=== PATIENT | female | born 1960 | race Caucasian/White ===

== ENCOUNTER 2019-06-28 10:27 | Outpatient (CLI) | payer OTHER, SELFPAY ==
--- NOTE | ~2019-06-28 | XR_ITS ---
XR ankle LT min 3V DATE: 06/28/2019 10:55 INDICATION: Ankle and foot pain TECHNIQUE: 4 views COMPARISON: None FINDINGS: There is prominent generalized soft tissue swelling of the left ankle. No fracture or dislocation of the ankle or disruption of the ankle mortise. No periosteal reaction or bone destruction. Mild plantar calcaneal enthesopathy. IMPRESSION: Generalized soft tissue swelling Reviewed, dictated and finalized at location B. 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
[2019-06-28 10:45] LABS: Basophils Absolute Auto 0.04 K/mm3 (0.00-0.10); Basophils Percent Auto 0.7 % (0.0-1.0); Eosinophils Absolute Auto 0.05 K/mm3 (0.02-0.50); Eosinophils Percent Auto 0.9 % (1.0-6.0); Hematocrit 40.6 % (35.0-49.0); Hemoglobin 13.6 g/dL (12.0-15.0); Immature Granulocyte Absolute 0.01 K/mm3 (0.00-0.00); Immature Granulocyte Percent A 0.2 % (0.0-0.0); Lymphocytes Absolute Auto 1.73 K/mm3 (1.10-4.50); Lymphocytes Percent Auto 30.7 % (18.0-42.0); Mean Corpuscular HGB Conc 33.5 g/dL (32.0-36.0); Mean Corpuscular Hemoglobin 30.7 pg (27.0-31.0); Mean Corpuscular Volume 91.6 fL (78.0-102.0); Mean Platelet Volume 9.9 fl (9.2-11.8); Monocytes Absolute Auto 0.49 K/mm3 (0.10-0.90); Monocytes Percent Auto 8.7 % (2.0-11.0); Neutrophils Absolute Auto 3.3 K/mm3 (1.7-7.2); Neutrophils Percent Auto 58.8 % (50.0-70.0); Platelet Count Result 290 K/mm3 (150-420); Red Blood Count 4.43 M/mm3 (4.20-5.40); Red Cell Distribution Width 13.1 % (11.6-14.4); White Blood Count 5.6 K/mm3 (4.8-10.8)
[2019-06-28 11:18] LABS: Anion Gap 13.4 mmol/L (7-16); Blood Urea Nitrogen 19 mg/dL (7-18); Carbon Dioxide 27 mmol/L (21-32); Chloride 107 mmol/L (98-108); Estimated Glomerular Filt Rate > 60; Glucose 94 mg/dL (70-99); Osmolality Calculated 298 mOsm/kg (285-295); Potassium 4.4 mmol/L (3.5-5.1); Sodium 143 mmol/L (136-145); Uric Acid 4.9 mg/dL (2.6-6.0)
== END 2019-06-28 10:28 | disposition home or self-care (01) ==
LOC: CHSLAB 10:29
PROVIDERS: PCP Family Medicine; Visit Provider Family Medicine
DX: M25.579 Pain in unspecified ankle and joints of unspecified foot (principal)
CPT/HCPCS: 36415; 73610; 80048; 84550; 85025

== ENCOUNTER 2019-07-09 08:25 | Outpatient (CLI) | payer OTHER, SELFPAY ==
--- NOTE | ~2019-07-09 | XR_ITS ---
XR foot LT min 3V DATE: 07/09/2019 08:56 INDICATION: Pain, swelling TECHNIQUE: 3 weightbearing views of the left foot COMPARISON: None FINDINGS: Plantar calcaneal enthesopathy. No fracture, dislocation, periosteal reaction or bone destruction. There is apex medial angulation at the second through fourth metatarsophalangeal joints. No erosive c hanges. IMPRESSION: Plantar calcaneal enthesopathy Temple medial angulation at second through fourth metatarsophalangeal joints Reviewed, dictated and finalized at location B.
--- NOTE | ~2019-07-09 | XR_ITS ---
XR ankle LT min 3V DATE: 07/09/2019 08:56 INDICATION: Medial ankle pain. Ankle swelling. TECHNIQUE: 3 weightbearing views COMPARISON: 06/28/2019 FINDINGS: There is mild osteoarthritic spurring at the tibiotalar joint. No fracture or dislocation of the ankle or disruption of the ankle mortise is detected. Plantar calcaneal enthesopathy. 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
== END 2019-07-09 08:26 | disposition home or self-care (01) ==
LOC: CHSIMG 08:27
PROVIDERS: PCP Family Medicine; Visit Provider Orthopaedic Surgery
DX: M25.572 Pain in left ankle and joints of left foot (principal); M79.672 Pain in left foot
CPT/HCPCS: 73610; 73630

== ENCOUNTER 2019-07-09 16:52 | Outpatient (RCR) | payer OTHER, SELFPAY ==
--- NOTE | 2019-07-11 11:41 | PTOPEVAL ---
Thank you for referring this patient to [facility]. Please review, sign, date and return this plan of care EMMANUEL. I agree with and certify that the following plan of care is medically necessary. Referring Physician Date Admitting Provider: Attending Provider: Jona Child MD Referring Provider: *PT Outpatient Evaluation Start: 07/09/19 15:51 Freq: Status: Active Protocol: Document 07/09/19 15:51 LAMINE (Rec: 07/09/19 17:01 [email or web address] [id number]) Therapy Assessment Status Assessment Status Assessment Status Evaluation Outpatient Past Medical History Neurological History Hx Other Neurological Disorders Yes: ESTRADA CARPAL TUNNEL Cardiovascular History Hx Peripheral Vascular Disease Yes Musculoskeletal History Hx Orthopedic Surgery Yes: BILATERAL KNEES Reproductive History Hx Hysterectomy Yes Evaluation Information Problem Diagnosis bilateral ankle pain Onset 06/02/19 Subjective Information Pt. reports on 06/02/19 she was Query Text:As Reported By Patient/ cleaning in her home on a Family ladder. She reports that she developed pain in both ankle that day. She reports left is worse than the right. She describes majority of her pain on the inside of the bilateral ankle joints. Pt. reports pain is increased with walking and standing for prolonged periods. Pt. reports that her goal is to decrease her pain and walk normal. 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
== END 2019-08-08 17:12 | disposition home or self-care (01) ==
LOC: CHSPT 16:52
PROVIDERS: PCP Family Medicine; Visit Provider Orthopaedic Surgery
DX: M76.822 Posterior tibial tendinitis, left leg (principal); M76.821 Posterior tibial tendinitis, right leg; M25.579 Pain in unspecified ankle and joints of unspecified foot
CPT/HCPCS: 97035; 97110; 97140; 97161; 97542

== ENCOUNTER 2020-02-11 06:59 | Outpatient (CLI) | payer OTHER, SELFPAY ==
--- NOTE | ~2020-02-11 | MM_ITS ---
EXAMINATION: MM screening zoraida BI w tawnya HISTORY: Screening mammogram TECHNIQUE: Craniocaudal and mediolateral oblique 3-D tomosynthesis images were obtained and synthetic 2-D images were generated. CAD analysis was submitted and interpreted. COMPARISON: 02/08/2019, 02/07/2018, 10/11/2014 bilateral digital screening mammogram examinations BREAST PARENCHYMAL COMPOSITION: There are scattered areas of fibroglandular density. FINDINGS: Stable benign circumscribed intramammary lymph node in the posterior aspect of the upper ou ter quadrant of the left breast. There is no evidence of suspicious mass, calcification, or mobility architect ural distortion to suggest malignancy in either breast. There has been no suspicious interval change. IMPRESSION: 1. No mammographic evidence of malignancy. 2. Recommend routine screening mammography in one year. BI-RADS Category 2: Benign finding(s). Reviewed, dictated and finalized at location A.
== END 2020-02-11 07:00 | disposition home or self-care (01) ==
LOC: CHSIMG 07:01
PROVIDERS: PCP Family Medicine; Visit Provider Obstetrics & Gynecology
DX: Z12.31 Encounter for screening mammogram for malignant neoplasm of breast (principal)
CPT/HCPCS: 77063; 77067

== ENCOUNTER 2020-06-20 15:38 | Outpatient (CLI) | payer OTHER, SELFPAY | END 2020-06-20 15:39 | disposition home or self-care (01) | LOC: CHSLAB 15:40 | PROVIDERS: PCP Family Medicine; Visit Provider Urology | DX: Z01.818 Encounter for other preprocedural examination (principal) | CPT/HCPCS: 87077; 87086; 87088; 87186 ==

== ENCOUNTER 2021-02-09 07:53 | Outpatient (RCR) | payer OTHER, SELFPAY ==
--- NOTE | 2021-02-09 08:01 | PTOPEVAL ---
Thank you for referring Cristiane Rivera to [facility].? The patient is scheduled to be seen for therapy? ____x/week for ___ weeks. Please review, sign, date and return this plan of care EMMANUEL. I agree with and certify that the following plan of care is medically necessary. Referring Physician Date Admitting Provider: Attending Provider: Scott Gunn MD Referring Provider: *PT Outpatient Evaluation Start: 02/09/21 07:04 Freq: Status: Active Protocol: Document 02/09/21 07:04 ACR (Rec: 02/09/21 08:00 ACR [id number]) Therapy Assessment Status Assessment Status Assessment Status Evaluation Outpatient Past Medical History Neurological History Hx Other Neurological Disorders Yes: ESTRADA CARPAL TUNNEL Cardiovascular History Hx Peripheral Vascular Disease Yes Musculoskeletal History Hx Orthopedic Surgery Yes: BILATERAL KNEES Evaluation Information Problem Diagnosis L knee pain Onset 11/10/20 Subjective Information Patient reports that she has Query Text:As Reported By Patient/ been getting cortizone shots Family every three months for the past couple of years. She states that by the end of the day her knee is really swollen . She states it is pretty stiff when she sits. She states that stairs and walking down hill are the most difficult activities for her. She states that walking and standing for a period of time are painful, but as long as it is level she makes it work. She states that her R knee is arthritic as well. Patient states that she is taking naproxen in the morning for the pain. The patient states that the pain wakes her up at night. She states that she is getting her knee replaced in March. Her goal is to improve her range of motion and be able to navigate stairs with better ease. 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
== END 2021-03-09 09:45 | disposition home or self-care (01) ==
LOC: CHSPT 07:53
PROVIDERS: Visit Provider Orthopaedic Surgery
DX: M17.12 Unilateral primary osteoarthritis, left knee (principal)
CPT/HCPCS: 97014; 97110; 97161; 97530; G0283

== ENCOUNTER 2021-02-11 09:16 | Outpatient (CLI) | payer OTHER, SELFPAY ==
--- NOTE | ~2021-02-11 | MM_ITS ---
EXAMINATION: MM screening zoraida BI w tawnya HISTORY: Screening mammogram TECHNIQUE: Craniocaudal and mediolateral oblique 3-D tomosynthesis images were obtained and synthetic 2-D images were generated. CAD analysis was submitted and interpreted. COMPARISON: 02/11/2020, 02/08/2019, 02/07/2018 bilateral digital screening mammogram examinations BREAST PARENCHYMAL COMPOSITION: There are scattered areas of fibroglandular density. FINDINGS: Stable benign appearing probable lymph node in the posterior upper outer left breast. There is no evidence of suspicious mass, calcification, or architectural distortion to suggest malignancy in either breast. There has been no suspicious interval change. IMPRESSION: 1. No mammographic evidence of malignancy. 2. Recommend routine screening mammography in one year. BI-RADS Category 2: Benign finding(s). Reviewed, dictated and finalized at location A.
== END 2021-02-11 09:17 | disposition home or self-care (01) ==
LOC: CHSIMG 09:17
PROVIDERS: PCP Family Medicine; Visit Provider Obstetrics & Gynecology
DX: Z12.31 Encounter for screening mammogram for malignant neoplasm of breast (principal)
CPT/HCPCS: 77063; 77067

== ENCOUNTER 2021-03-30 13:49 | Outpatient (CLI) | payer OTHER, SELFPAY ==
--- NOTE | 2021-03-30 14:41 | ECG_ITS ---
Measurements Intervals [place] Rate: 65 P: 44 OR: 162 QRS: 9 QRSD: 105 T: 31 QT: 423 QTc: 440 Interpretive Statements SINUS RHYTHM POOR R WAVE PROGRESSION, ANTERIOR LEADS CONSIDER INFERIOR INFARCT, AGE INDETERMINATE BASELINE ARTIFACT- V6 ABNORMAL ECG Electronically Signed On 03-30-2021 15:05:43 RAT TRAPPER by Beck Jackson D.O.
[2021-03-30 15:06] LABS: Basophils Absolute Auto 0.1 K/mm3 (0.0-0.1); Basophils Percent Auto 1.1 % (0.2-1.2); Eosinophils Absolute Auto 0.1 K/mm3 (0-0.3); Eosinophils Percent Auto 1.1 % (0-4.4); Hemoglobin 13.5 g/dL (12.0-15.0); Immature Granulocyte Absolute 0.01 K/mm3 (0.00-0.031); Immature Granulocyte Percent A 0.2 % (0-0.5); Lymphocytes Absolute Auto 1.75 K/mm3 (0.9-3.2); Lymphocytes Percent Auto 26.9 % (18.3-44.2); Mean Corpuscular HGB Conc 33.8 g/dl (32-36); Mean Corpuscular Hemoglobin 30.9 pg (26-34); Mean Corpuscular Volume 91.5 fl (80-100); Mean Platelet Volume 9.9 fl (7.4-10.4); Monocytes Absolute Auto 0.4 K/mm3 (0.1-0.6); Neutrophils Absolute Auto 4.2 K/mm3 (1.3-6.7); Neutrophils Percent Auto 64.7 % (45.5-73.1); Platelet Count Result 316 k/mm3 (150-375); Red Blood Count 4.37 M/mm3 (4.2-5.4); Red Cell Distribution Width 12.5 % (11.5-14.5); White Blood Count 6.5 K/mm3 (4.5-10.0)
[2021-03-30 15:15] LABS: Albumin Level 4.2 g/dL (3.5-5.1); Anion Gap 7 mmol/L (8-16); Blood Urea Nitrogen 21 mg/dL (7-17); Carbon Dioxide 27 mmol/L (22-30); Chloride 105 mmol/L (98-107); Estimated Glomerular Filt Rate > 60; Glucose 94 mg/dL (65-110); Potassium 3.9 mmol/L (3.4-5.0); Sodium 139 mmol/L (137-145)
[2021-03-30 17:40] LABS: Hemoglobin A1C 5.1 % (<5.7)
[2021-03-30 19:04] LABS: Urine Cotinine NEGATIVE
== END 2021-03-30 13:50 | disposition home or self-care (01) ==
LOC: ANHSURGERY 13:54
PROVIDERS: PCP Family Medicine; Visit Provider Orthopaedic Surgery
DX: M17.12 Unilateral primary osteoarthritis, left knee (principal); Z01.818 Encounter for other preprocedural examination; R94.31 Abnormal electrocardiogram [ECG] [EKG]
CPT/HCPCS: 80048; 80307; 82040; 83036; 85025; 87070; 93005

== ENCOUNTER 2021-04-15 01:22 | Day surgery (SDC) | payer OTHER, SELFPAY ==
[2021-03-30 14:00] VITALS: BMI 34.6
--- NOTE | 2021-03-30 14:16 | PC.NURSE ---
Report to the Outpatient Waiting Room, entrance under the green pavilion located off [facility], at time _1000 on date04/15/21 . OR Time: _1200 . - You and your visitor will be asked a series of questions to screen for COVID 19 for your protection. - A mask is required within the hospital. - Only one visitor is allowed at this time. Patient visitors will be guided where to wait when not with patient. Preoperative COVID Testing Requirements: No COVID Test needed if: (proof is required; if not received patient will have Rapid Test prior to entry) - Patient has received COVID Vaccine at least 14 days prior to procedure date or - Patient has positive COVID test result within last 90 days of surgery date. COVID Test needed if above criteria is not met If not COVID vaccinated a COVID test must be conducted within 72 hours of surgery and patient is asked to isolate self from time of testing until procedure. You will go to the [facility] Testing Site for your COVID testing. The [facility] site is located at the corner of [address] [facility]. You will only be called if COVID results are positive and your surgeon may reschedule your elective surgery date. Patients may have clear liquids (water, carbonated beverages, clear teas, apple juice) until 3 hours prior to surgery with a maximum of 20 ounces. - No food from midnight until time of surgery - Infants may have breast milk until 4 hours before surgery, infant formula 6 hours prior to surgery. - Children will be allowed to drink immediately following surgery. If applicable, please bring a bottle or sippy cup to assist with drinking. Juice, water, soda, and popsicles are readily available. For infants on formula, please bring formula the day of surgery. Pacifiers are allowed. Take the following medications with a SIP of water the morning of surgery: __NONE Medications to discontinue per physician __NAPROXEN 7 DAYS PRE OP Date to take last dose__04/07/21 Please no make-up, nail uzbek, hairspray, perfume, deodorant, or body powder the day of surgery. No jewelry (including any body piercings) or valuables the day of surgery, leave them at home. Please take a shower or bath the night before, or the morning of, surgery with an antibacterial soap. Wear comfortable, loose fitting clothing. Children are encouraged to wear pajamas. - Jewelry must be removed prior to entering the operating room. Rings and piercings that are not removed may be cut off. - The hospital will not accept responsibility for valuables. - Please leave all valuables, including medications, at home the day of surgery. If you are going home after surgery, a licensed cattle driver must drive you home. - NO public transportation without another adult. TOTAL JOINT CLASS 04/08/21 AT 10 AM - We recommend that an adult stay with you for 24 hours following discharge. - We also recommend that you do not drive, make important decision, drink alcoholic beverages, or take any drugs that were not prescribed by your health care provider for at least 24 hours after your discharge time. For Pediatric surgeries, we recommend two adults accompany the child home (only one inside the building at this time). Follow any additional instructions given to you from your surgeon. VERBAL instructions given to __PATIENT and asked if any additional questions and then verbalized understanding. Patient advised to call surgeon office or pre surgery nurse liaison [phone] if any additional questions.
[2021-03-30 14:39] VITALS: BP 140/76; PULSE 72; RESP 16; TEMP 36.6; O2SAT 96
--- NOTE | 2021-04-14 10:28 | P.PNAN_ITS ---
Anes - Initial Pre Proc Eval Procedure: Operation Date: 04/15/21 12:00 Proposed Procedures p Left Total Knee Arthroplasty - Scott Gunn MD Date/Time: 04/14/21 10:28 Surgeon: Scott Gunn MD Pre Op Diagnosis: severe OA left knee Patient Data Age: 60 Gender: F Height: 1.7 m Weight: 100.3 kg Last Vital Signs Temp 36.6 C 03/30/21 14:39 Pulse 72 03/30/21 14:39 Resp 16 03/30/21 14:39 BP 140/76 03/30/21 14:39 Pulse Ox 96 03/30/21 14:39 Allergies Allergy/AdvReac Type Severity Reaction Status Date / Time Penicillins Allergy Mild rash Verified 03/30/21 14:01 Home Medications Medication Instructions Recorded Confirmed Type estradiol 2 mg PO DAILY 03/30/21 03/30/21 History naproxen sodium 440 mg PO DAILY 03/30/21 03/30/21 History Patient hx anesthesia problems: none Family hx anesthesia problems: none Results Review: All pre-operative results and documents have been reviewed as part of the pre-operative evaluation. [facility] Past Medical History Medical History Carpal tunnel syndrome of left wrist Obesity Osteoarthritis Posterior tibial tendinitis of both lower extremities Surgical History Surgical History H/O hysterectomy for benign disease S/P left knee arthroscopy S/P right knee arthroscopy Family History Family History Mother Family history of malignant neoplasm Other Diabetes mellitus Family history of arthritis Family history of gout Hypertension Social History Social History Smoking status: Never smoker Additional smoking assessment comments: DENIES ANY FORM OF TOBACCO USE Alcohol intake: current Drinks per week: 5 Spiritual care concerns: No Anes - Eval Final PreProcedure Day of Procedure 04/14/21 10:28 Patient weight: obese Heart: regular rate and rhythm Lungs: clear to auscultation and normal air movement Airway: Mallampati scale class II Neurological: alert and oriented Last oral intake: >/= 8 hours ASA classification: II Emergent: no Anesthetic plan: proceed Anesthesia type and monitoring: general LMA Results Review: All pre-operative results and documents have been reviewed as part of the pre-operative evaluation. Informed Consent: The patient's anesthetic plan and its attendant risks and benefits were discussed with the patient/family/POA. Questions were solicited and answers provided to the satisfaction of the patient/family/POA.
[2021-04-15] VITALS (8 sets, daily range): BP systolic 144–171; BP diastolic 67–94; PULSE 70–84; RESP 10–18; TEMP 36.3–36.8; O2SAT 96–100
--- NOTE | ~2021-04-15 | XR_ITS ---
EXAMINATION: XR knee LT 2V DATE: 04/15/2021 16:46 INDICATION: Postoperative evaluation following left total knee arthroplasty. TECHNIQUE: Anteroposterior and lateral views of the left knee were obtained. COMPARISON: None. FINDINGS: Left total knee arthroplasty with patellar resurfacing appears well seated and in near anatomic align ment. No fractures identified. Expected postoperative subcutaneous and intra-articular gas. IMPRESSION: 1. Left total knee arthroplasty, negative for postoperative purposes. Reviewed, dictated and finalized at location H. TRUCTION CONSULTANT
--- NOTE | 2021-04-15 08:00 | P.HP_ITS ---
H&P: HPI History of Present Illness Date/Time: 04/15/21 08:[id number] female patient of Dr. Orta who pres ents today for a left total knee arthroplasty. She has been having pain in this knee for years. She has been getting cortisone injections fairly regularly. Last 1 was approximately 5 months ago. She got minimal improvement of her symptoms. She has severe medial compartment and patellofemoral arthritis in the knee. She has reached a point where she feels she would rather proceed with total knee arthroplasty rather continue nonsurgical treatment. Patient has also been taking naproxen regular basis through this time as well without improvement of her symptoms. Chief Complaint: Left knee DJD Review of Systems Review of Systems: All systems reviewed & are unremarkable except as noted in HPI and below PMFSH Past Medical History Medical History Carpal tunnel syndrome of left wrist Obesity Osteoarthritis Posterior tibial tendinitis of both lower extremities Surgical History Surgical History H/O hysterectomy for benign disease S/P left knee arthroscopy S/P right knee arthroscopy Family History Family History Mother Family history of malignant neoplasm Other Diabetes mellitus Family history of arthritis Family history of gout Hypertension Social History Social History Smoking status: Never smoker Additional smoking assessment comments: DENIES ANY FORM OF TOBACCO USE Alcohol intake: current Drinks per week: 5 Living arrangements: with family Spiritual care concerns: No Meds Home Medications and Allergies Home Medications Medication Instructions Recorded Confirmed Type estradiol 2 mg PO DAILY 03/30/21 03/30/21 History naproxen sodium 440 mg PO DAILY 03/30/21 03/30/21 History Allergies Allergy/AdvReac Type Severity Reaction Status Date / Time Penicillins Allergy Mild rash Verified 03/30/21 14:01 Exam Narrative: 60-year-old female alert pleasant. She is 5 ft 4 and 225 lb. Left knee range of motion is from 15-95 degrees. No definite effusion. Minimal tenderness about the knee. 2+ dorsalis pedis and absent posterior tibial artery pulse. Normal sensation left lower extremity. Skin is all normal. Hip range of motion is full without discomfort. Negative Stinchfield maneuver. Normal quad strength. Resp: Auscultation: clear to auscultation bilaterally Cardio: Rate: regular rate Rhythm: regular rhythm Assessment and Plan Additional Plan 60-year-old female who has severe arthritis in her left knee was significant stiffness as well. She feels she has reached a point she is ready proceed with total knee arthroplasty. Surgical procedure as well as the risks and complications were discussed in detail all questions were answered we will proceed. Patient will see her primary care doctor for pre-surgical clearance. Plan use Eliquis, baby aspirin for DVT prophylaxis. Patient was advised to stop her estradiol 1 month ago. Her hemoglobin preoperatively was 13.5 platelets are 316. Chem panel is all within normal limits. Creatinine 0.70. Nasal swab was negative.
[2021-04-15] MEDS: LACTATED RINGERS 1,000 ML 30 ML IV CONT ×2 (10:57→16:32)
[2021-04-15] MEDS: ACETAMINOPHEN 500 MG TABLET 1000 MG PO ×2 (10:58→18:19)
[2021-04-15] MEDS: TRANEXAMIC ACID 1,000MG/ISO100 1,000 MG/100 ML BAG 200 MG IVPB (10:58)
--- NOTE | 2021-04-15 11:49 | WPDHPUPDATE1 ---
History and Physical Update Update Date/Time: 04/15/21 11:49 History and Physical has been reviewed, including an updated exam of the patient. There are NO changes in the patient's condition. Risks, benefits, and alternatives have been discussed and questions answered. Patient agrees to proceed with procedure.
[2021-04-15] MEDS: ceFAZolin 2 GM/D5W 50 ML 2 GM/50 ML BAG IVPB (12:14)
[2021-04-15] MEDS: DEXAMETHASONE SOD PHOS INJ 4 MG/ML VIAL 8 MG IV PUSH (12:23)
[2021-04-15] MEDS: ceFAZolin SODIUM 1 GM VIAL 3 GM IRRIGATION (12:56)
[2021-04-15] MEDS: ceFAZolin SODIUM 1 GM VIAL 2 GM IV PUSH (15:23)
[2021-04-15] MEDS: TRANEXAMIC ACID 1,000 MG/10 ML AMPUL 1000 MG IV PUSH (15:23)
--- NOTE | 2021-04-15 16:17 | W.PM.PROC2 ---
Procedure Note - Detailed Date of Procedure 04/15/21 Pre-op Diagnosis severe OA left knee Post-op Diagnosis same Procedure Performed Left total knee arthroplasty Surgeon Scott Gunn MD Motor And Controls Tester Grace and Adilene Anesthesia general Description of Procedure Patient was brought to the operating room and general anesthesia was administered. She received 2 g of Ancef weight based vancomycin 1 g of tranexamic acid preoperatively the left leg prepped draped usual fashion. There was extra difficulty with the procedure due to her obesity with BMI of 35.8 and severe stiffness due to advanced hypertrophic osteoarthritis with a 22 degree flexion contracture under anesthesia and flexion only to 90? under anesthesia. This added approximately 45 minutes to an hour to the procedure time. Limb was exsanguinated tourniquet elevated to 300 mmHg. 7 in longitudinal incision was made. Standard parrot patellar arthrotomy lysed. Infrapatellar and suprapatellar fat pads were excised a quadriceps synovectomy carried out. Suprapatellar pouch was released to allow additional quadriceps excursion. Patella had severe osteophytes around which were trimmed. Central patella measured 22 mm in thickness. The patella was cut to 16 mm and a protector cap applied. A guide rakesh was inserted down the femoral canal after aspiration of canal contents using the 5 degree valgus cutting bushing 9 mm of bone removed from the distal femur. Because of bone wear on the distal medial femoral condyle this actually removed 9 for lateral side and a from the medial side. Next the tibial plateau was cut. Because of her stiffness anterior subluxation of the tibia was limited so we had to make a provisional cut with a wafer then removed to see that we had another 3 more mm to go to get to the bottom of the where area posterior aspect medial tibial plateau. This cut was then revised. This gave us a cut that was perpendicular to the axis of the tibia. PCL was recessed and a central posterior capsule release was performed. Meniscal remnants were excised. Medial tibial osteophyte was trimmed where we had exposure to it anteromedially and medial femoral condylar osteophyte removed. With this done the flexion gap medially was 8 mm and laterally 12 mm. The sizing guide was applied to the distal femur with 5? of external rotation which matched the epicondylar axis was felt likely to balance the flexion gap from medial to lateral. AP cut for the 67.5 femur was done and I felt that we could cut an additional 2-1/2 mm of anterior femur without notching and the 67.5 was far too wide. The 65 block was applied and AP and chamfer cuts were made. The 65 overhung about a mm medially and laterally at the distal most aspect what was the appropriate size. We had ability to insert the 10 mm CR trial and we had a mm of gap both medially and laterally for good balance. The tibia was exposed and sized to a 71 vanguard. Rotation was set to relative to the medial 2/3 of the tibial tubercle in the 2nd metatarsal ray. This was punched we trialed with the insert. I removed some additional posteromedial tibial osteophyte and we avoided release of medial collateral ligament from the tibial metaphysis releasing only enough to make the tibial cut safely and removed the tibial osteophyte. She did not have a severe varus deformity preoperatively. We trialed and the knee lacked about 5? of extension at this point. There was play though medially and laterally 1-2 mm medial 2-3 lateral. Therefore I did not feel that removal of extra distal femur was indicated just yet. Posterior femoral osteophyte was removed which was quite pronounced medially. A more thorough posterior capsular release was performed releasing the posterior capsule from the insertion of the gastrocnemius medial head to the lateral head. We trialed once again and this time the knee had a fairly positive bounce possibly extending to full extension with 2 mm
[2021-04-15] MEDS: fentaNYL CITRATE INJ (*CRX) 100 MCG/2 ML VIAL 25 MCG IV PUSH ×4 (16:39→16:55)
[2021-04-15] MEDS: oxyCODONE HCL (*CRX) 5 MG TAB IR PO ×2 (18:19→22:00)
[2021-04-15] MEDS: SENNA/DOCUSATE SODIUM TABLET 2 TAB PO (18:20)
[2021-04-15] MEDS: SODIUM CHLORIDE 0.9% IV 1,000 ML 125 ML IV CONT (18:20)
[2021-04-16] MEDS: ACETAMINOPHEN 500 MG TABLET 1000 MG PO ×2 (00:20→05:45)
[2021-04-16] MEDS: oxyCODONE HCL (*CRX) 5 MG TAB IR PO ×3 (01:30→09:14)
[2021-04-16 05:47] VITALS: BP 119/57; PULSE 78; RESP 16; TEMP 36.8; O2SAT 99
[2021-04-16 05:48] VITALS: O2SAT 99
[2021-04-16 05:55] LABS: Basophils Percent Auto 0.3 % (0.2-1.2); Hematocrit 32.8 % (37.0-47.0); Hemoglobin 10.9 g/dL (12.0-15.0); Immature Granulocyte Absolute 0.03 K/mm3 (0.00-0.031); Immature Granulocyte Percent A 0.3 % (0-0.5); Lymphocytes Absolute Auto 1.56 K/mm3 (0.9-3.2); Lymphocytes Percent Auto 14.2 % (18.3-44.2); Mean Corpuscular HGB Conc 33.2 g/dl (32-36); Mean Corpuscular Hemoglobin 30.3 pg (26-34); Mean Corpuscular Volume 91.1 fl (80-100); Monocytes Absolute Auto 0.7 K/mm3 (0.1-0.6); Neutrophils Absolute Auto 8.7 K/mm3 (1.3-6.7); Neutrophils Percent Auto 79.2 % (45.5-73.1); Platelet Count Result 238 k/mm3 (150-375); Red Cell Distribution Width 12.7 % (11.5-14.5)
[2021-04-16 06:04] LABS: Anion Gap 3 mmol/L (8-16); Blood Urea Nitrogen 12 mg/dL (7-17); Calcium 8.1 mg/dL (8.4-10.2); Carbon Dioxide 26 mmol/L (22-30); Chloride 102 mmol/L (98-107); Estimated CRCL calculation 87 ml/min; Estimated Glomerular Filt Rate > 60; Glucose 114 mg/dL (65-110); Potassium 3.6 mmol/L (3.4-5.0); Sodium 131 mmol/L (137-145)
--- NOTE | 2021-04-16 07:43 | PM.PNORT ---
Progress Note: A&P Additional Plan Patient is postop day 1 after left total knee arthroplasty. This was complex in that she had an extremely stiff knee. She is doing well this morning. The resting on the pillow she has her knee to less than 5? of flexion almost all the way out straight. She is intact with respect to sensation and motor function left foot. There is no significant swelling. There has been no bleeding from the incision. Her pain has been well controlled on the current regimen. She feels comfortable going home today. Hemoglobin 10.9 represents an at a mild acute blood loss anemia. Sodium slightly low at 131 not significant. Subjective Subjective Date/Time Seen: 04/16/21 07:43 Objective Data Vital Signs Vital Signs: Vital Signs - 24 hr 04/15/21 11:00 04/15/21 16:32 04/15/21 16:45 Temperature 36.8 C 36.7 C Pulse Rate 70 76 76 Respiratory Rate 18 10 L 10 L Blood Pressure 171/77 H 159/83 H 159/86 H Pulse Oximetry 98 96 100 04/15/21 17:00 04/15/21 17:15 04/15/21 17:48 Temperature Pulse Rate 73 76 76 Respiratory Rate 11 L 15 15 Blood Pressure 161/84 H 156/94 H Pulse Oximetry 98 99 99 04/15/21 18:10 04/15/21 20:00 04/16/21 05:47 Temperature 36.6 C 36.3 C L 36.8 C Pulse Rate 77 84 78 Respiratory Rate 18 16 16 Blood Pressure 160/91 H 144/67 H 119/57 L Pulse Oximetry 98 97 99 04/16/21 05:48 Temperature Pulse Rate Respiratory Rate Blood Pressure Pulse Oximetry 99 Intake/Output Intake/Output: Intake & Output 04/13/21 04/14/21 04/15/21 04/16/21 23:59 23:59 23:59 23:59 Intake Total 1100 1875 Output Total 400 Balance 700 1875 Meds/Results Medications: Active Medications Generic Name Dose Route Start Last Admin Trade Name Freq PRN Reason Stop Dose Admin Acetaminophen 1,000 mg 04/15/21 18:00 04/16/21 05:45 Acetaminophen 500 Mg Tablet PO 1,000 mg Q6H SUNDAY Administration Apixaban 2.5 mg 04/16/21 09:00 Apixaban 2.5 Mg Tablet PO Q12HR SUNDAY Celecoxib 200 mg 04/16/21 08:00 Celecoxib 200 Mg Capsule PO DAILY@0800 [facility] Cephalexin HCl 500 mg 04/16/21 18:00 Cephalexin 500 Mg Capsule PO Q6HR [facility] Dexamethasone Sodium Phosphate 10 mg 04/16/21 07:41 Dexamethasone Sod Phos Inj 10 Mg/Ml 1 Ml Vial IV PUSH 04/16/21 07:42 ONCE ONE Cefazolin Sodium 1 gm in 50 mls @ 100 mls/hr 04/15/21 20:00 04/16/21 05:00 Ancef 1 Gm/D5w 50 Ml Pm IVPB 04/16/21 12:29 Infused Q8H SUNDAY Infusion Vancomycin HCl 1,000 mg in 250 mls @ 250 mls/hr 04/15/21 23:00 04/16/21 01:20 Vancomycin 1,000 Mg/D5w 250 Ml IVPB 04/16/21 11:59 Infused Q12H SUNDAY Infusion Morphine Sulfate 2 mg 04/15/21 17:25 Morphine Sulfate (*Crx) 2 Mg/Ml Inj IV PUSH Q1H PRN Pain Rated 7-10 Naloxone HCl 0.1 mg 04/15/21 17:25 Naloxone Hcl 0.4 Mg/Ml Vial IV PUSH Q2M PRN Opiate Reversal Ondansetron HCl 4 mg 04/15/21 17:25 Ondansetron Inj 4 Mg/2 Ml Vial IV PUSH Q4H PRN Nausea And Vomiting Oxycodone HCl 5 mg 04/15/21 21:00 04/16/21 05:45 Oxycodone Hcl (*Crx) 5 Mg Tab Ir PO 5 mg Q4HR SUNDAY Administration Oxycodone HCl 5 mg 04/15/21 17:25 04/15/21 18:19 Oxycodone Hcl (*Crx) 5 Mg Tab Ir PO 5 mg Q4H PRN Administration Pain Rated 4-10 Polyethylene Glycol 17 gm 04/16/21 09:00 Polyethylene Glycol 3350 17 Gm Powd.Pack PO QAM SUNDAY Senna/Docusate Sodium 2 tab 04/15/21 17:25 04/15/21 18:20 Senna/Docusate Sodium Tablet PO 2 tab BID SUNDAY Administration Radiology Results: ITS Impressions Knee X-Ray 04/15/21 16:48 IMPRESSION: 1. Left total knee arthroplasty, negative for postoperative purposes. Labs Labs: Laboratory Results - last 24 hr 04/15/21 04/16/21 04/16/21 11:00 05:30 05:30 WBC 11.0 H RBC 3.60 L Hgb 10.9 L Hct 32.8 L MCV 91.1 MCH 30.3 MCHC 33.2 RDW 12.7 Plt Count 238 MPV 10.0 Immature Gran % (Auto) 0.3 Neut % (A
[2021-04-16] MEDS: CELECOXIB 200 MG CAPSULE PO (09:12)
[2021-04-16] MEDS: APIXABAN 2.5 MG TABLET PO (09:12)
[2021-04-16] MEDS: SENNA/DOCUSATE SODIUM TABLET 2 TAB PO (09:13)
[2021-04-16] MEDS: polyethylene glycoL 3350 17 GM POWD.PACK PO (09:15)
== END 2021-04-16 09:45 | disposition home or self-care (01) ==
LOC: ANHSURGERY 10:18 → ANHSUROVER 17:31
PROVIDERS: PCP Family Medicine; Visit Provider Orthopaedic Surgery
PROC: (CPT 27447; principal; 2021-04-15 12:00)
DX: M17.12 Unilateral primary osteoarthritis, left knee (principal); D62 Acute posthemorrhagic anemia; E66.9 Obesity, unspecified; Z68.33 Body mass index [BMI] 33.0-33.9, adult
CPT/HCPCS: 27447; 36415; 73560; 80048; 80307; 82040; 83036; 85025; 86850; 86900; 86901; 87070; 93005; 97110; 97161; 97165; A9270; C1713; C1776; J0171; J0690; J1100; J1170; J1885; J2250; J2270; J2405; J2704; J2795; J3010; J3370; J7030; J7120

== ENCOUNTER 2021-04-21 10:28 | Outpatient (RCR) | payer OTHER, SELFPAY ==
--- NOTE | 2021-04-21 12:45 | PTOPEVAL ---
Thank you for referring Cristiane Rivera to [facility].? The patient is scheduled to be seen for therapy? ____x/week for ___ weeks. Please review, sign, date and return this plan of care EMMANUEL. I agree with and certify that the following plan of care is medically necessary. Referring Physician Date Admitting Provider: Attending Provider: Scott Gunn MD Referring Provider: *PT Outpatient Evaluation Start: 04/21/21 10:37 Freq: Status: Active Protocol: Document 04/21/21 10:35 JTF (Rec: 04/21/21 11:45 [facility] [id number]) Therapy Assessment Status Assessment Status Assessment Status Evaluation Outpatient Past Medical History Neurological History Hx Neurological Disorders No Significant History Cardiovascular History Hx Other Cardiac Disorders Yes: BILAT VEIN STRIPPING Respiratory History Hx COVID-19 Yes: DEC 2019 [facility] Gastrointestinal History Hx Gastrointestinal Disorders No Significant History Genitourinary History Hx Bladder Surgery Yes: JUNE 2020 BLADDER TIE UP Musculoskeletal History Hx Arthritis Yes: KNEES Hx Crutches or Walker Use Yes: CRUTCHES Query Text:If Yes, Enter Crutches, Walker, or Both in the Comment Hx Other Musculoskeletal Disorders Yes: OA LT KNEE Hematological History Hx Blood Transfusions Yes: AN Endocrine History Hx Endocrine Disorders No Significant History HEENT History Hx Other HEENT Disorders Yes: READING GLASSES Integumentary History Hx Shingles Yes Psychosocial History Hx Psychiatric Disorders No Significant History Pain History Has Past Pain Affected Your Daily Life Yes: LT KNEE Anesthesia History Hx Anesthesia Reactions No Significant History Evaluation Information Problem Diagnosis s/p L TKA Onset 04/15/21 Additional Evaluation Detail LEFS = 70% functionally declined Subjective Information patient reports she had a L Query Text:As Reported By Patient/ TKA on 04/15/21. she reports Family she has not been using her walker much since surgery. she reports she has been doing exercises 2-3 times daily at home. Pain Assessment Timing of Pain Assessment Timing of Pain Assessment Assessment Pain Scale Pain Scale Used Numeric (1 - 10) Self Report Pain Assessment Left Knee(s) Reported Pain Level 3 Greatest Pain Intensity 6 Pain Score Pain Score 3: Self Report Interventions Used Interventions Used By Clinicians Education,Elevation,Exercise, Ice,Rest Lower Extremity Range of Motion General Lower Extremity Ran
--- NOTE | 2021-04-28 10:53 | PCPTNOTE ---
mrs. horowitz presents to skilled PT this date for her 4th skilled visit since her L TKA. as of this date, she continues to present with significant tightness of the L knee noting -8 degrees arom L knee extension and 65 degrees arom L knee flexion. her prom mobility is improved to -3 degrees extension and 80 degrees flexion. thus far therapy has consisted of exercises focusing on improving rom through arom, aarom, and prom exercises. she has been completing the HEP exercises at home consistently. she presents with significant mm guarding in the L LE preventing further progression of L knee rom. she would do well to continue skilled PT with focus on progressing flexion and extension rom to achieve those goals set forth post operatively. Thank you for allowing our facility to be involved in mrs horowitz's rehab. please do not hesitate to call with any questions or concerns. Sincerely, Navdeep Krishnan, DPT [phone]
--- NOTE | 2021-05-12 10:13 | PTOPEVAL ---
Thank you for referring Cristiane Rivera to [facility].? The patient is scheduled to be seen for therapy? ____x/week for ___ weeks. Please review, sign, date and return this plan of care EMMANUEL. I agree with and certify that the following plan of care is medically necessary. Referring Physician Date Admitting Provider: Attending Provider: Scott Gunn MD Referring Provider: *PT Outpatient Evaluation Start: 04/21/21 10:37 Freq: Status: Active Protocol: Document 05/12/21 09:00 ACR (Rec: 05/12/21 10:12 ACR [id number]) Therapy Assessment Status Assessment Status Assessment Status Progress Outpatient Past Medical History Neurological History Hx Neurological Disorders No Significant History Cardiovascular History Hx Other Cardiac Disorders Yes: BILAT VEIN STRIPPING Respiratory History Hx COVID-19 Yes: DEC 2019 [facility] Gastrointestinal History Hx Gastrointestinal Disorders No Significant History Genitourinary History Hx Bladder Surgery Yes: JUNE 2020 BLADDER TIE UP Musculoskeletal History Hx Arthritis Yes: KNEES Hx Crutches or Walker Use Yes: CRUTCHES Query Text:If Yes, Enter Crutches, Walker, or Both in the Comment Hx Other Musculoskeletal Disorders Yes: OA LT KNEE Hematological History Hx Blood Transfusions Yes: AN INFANT Endocrine History Hx Endocrine Disorders No Significant History HEENT History Hx Other HEENT Disorders Yes: READING GLASSES Integumentary History Hx Shingles Yes Psychosocial History Hx Psychiatric Disorders No Significant History Pain History Has Past Pain Affected Your Daily Life Yes: LT KNEE Anesthesia History Hx Anesthesia Reactions No Significant History Evaluation Information Problem Diagnosis L TKA Onset 04/15/21 Subjective Information The patient states she is Query Text:As Reported By Patient/ frustrated because she is Family stretching frequently and her knee is not progressing the way she was hoping. The patient states she is taking her pain pills before therapy to help with pain when stretching. Pain Assessment Timing of Pain Assessment Timing of Pain Assessment Assessment Pain Scale Pain Scale Used Numeric (1 - 10) Self Report Pain Assessment Left Knee(s) Reported Pain Level 2 Greatest Pain Intensity 4 Pain Score Pain Score 2: Self Report Interventions Used Interventions Used By Clinicians Activity or ADL's,Exercise Lower Extremity Range of Motion General Lower Extremity Range of Motion Gross Lower Extremity Range of
--- NOTE | 2021-06-12 09:30 | PTOPEVAL ---
Thank you for referring Cristiane Rivera to [facility].? The patient is scheduled to be seen for therapy? ____x/week for ___ weeks. Please review, sign, date and return this plan of care EMMANUEL. I agree with and certify that the following plan of care is medically necessary. Referring Physician Date Admitting Provider: Attending Provider: Scott Gunn MD Referring Provider: *PT Outpatient Evaluation Start: 04/21/21 10:37 Freq: Status: Active Protocol: Document 06/12/21 07:50 [facility] (Rec: 06/12/21 09:30 [facility] [id number]) Therapy Assessment Status Assessment Status Assessment Status Re-evaluation Outpatient Past Medical History Neurological History Hx Neurological Disorders No Significant History Cardiovascular History Hx Other Cardiac Disorders Yes: BILAT VEIN STRIPPING Respiratory History Hx COVID-19 Yes: DEC 2019 [facility] Gastrointestinal History Hx Gastrointestinal Disorders No Significant History Genitourinary History Hx Bladder Surgery Yes: JUNE 2020 BLADDER TIE UP Musculoskeletal History Hx Arthritis Yes: KNEES Hx Crutches or Walker Use Yes: CRUTCHES Query Text:If Yes, Enter Crutches, Walker, or Both in the Comment Hx Other Musculoskeletal Disorders Yes: OA LT KNEE Hematological History Hx Blood Transfusions Yes: AN INFANT Endocrine History Hx Endocrine Disorders No Significant History HEENT History Hx Other HEENT Disorders Yes: READING GLASSES Integumentary History Hx Shingles Yes Psychosocial History Hx Psychiatric Disorders No Significant History Pain History Has Past Pain Affected Your Daily Life Yes: LT KNEE Anesthesia History Hx Anesthesia Reactions No Significant History Evaluation Information Problem Diagnosis L TKA Onset 04/15/21 Additional Evaluation Detail LEFS = 35% functionally declined Subjective Information patient reports she feels Query Text:As Reported By Patient/ alright this date. she Family reports she does not feel as tight in the L knee today. Pain Assessment Timing of Pain Assessment Timing of Pain Assessment Assessment Pain Scale Pain Scale Used Numeric (1 - 10) Self Report Pain Assessment Left Knee(s) Reported Pain Level 2 Pain Score Pain Score 2: Self Report Interventions Used Interventions Used By Clinicians Activity or ADL's,Education, Exercise Lower Extremity Range of Motion General Lower Extremity Range of Motion Gross Lower Extremity Range of Motion -2 degrees arom L knee Comments extension 0 degrees prom L knee exten
== END 2021-06-16 08:20 | disposition home or self-care (01) ==
LOC: CHSPT 10:28
PROVIDERS: Visit Provider Orthopaedic Surgery
DX: Z96.652 Presence of left artificial knee joint (principal)
CPT/HCPCS: 97014; 97016; 97110; 97116; 97140; 97161; 97530; G0283

== ENCOUNTER 2022-02-15 14:20 | Outpatient (CLI) | payer OTHER, SELFPAY ==
--- NOTE | ~2022-02-15 | MM_ITS ---
EXAMINATION: MM screening [facility] BI w tawnya HISTORY: Screening mammogram TECHNIQUE: Craniocaudal and mediolateral oblique 3-D tomosynthesis images were obtained and synthetic 2-D images were generated. CAD analysis was submitted and interpreted. COMPARISON: 02/11/2021, 02/11/2020, 02/08/2019 BREAST PARENCHYMAL COMPOSITION: There are scattered areas of fibroglandular density. FINDINGS: No suspicious mass, calcification, or architectural distortion are identified in either heavenly ast to suggest malignancy. There has been no suspicious interval change. IMPRESSION: 1. No mammographic evidence of malignancy. 2. Recommend routine screening mammography in one year. BI-RADS Category 1: Negative Reviewed, dictated and finalized at location A.
== END 2022-02-15 14:21 | disposition home or self-care (01) ==
LOC: CHSIMG 14:22
PROVIDERS: PCP Family Medicine; Visit Provider Obstetrics & Gynecology
DX: Z12.31 Encounter for screening mammogram for malignant neoplasm of breast (principal)
CPT/HCPCS: 77063; 77067

== ENCOUNTER 2023-02-17 07:23 | Outpatient (CLI) | payer OTHER, SELFPAY ==
--- NOTE | ~2023-02-17 | MMUS_ITS ---
EXAMINATION: MM diagnostic [facility] RT w tawnya, US breast RT limited HISTORY: 3 mm ill-defined density in the anterior lower inner right breast was reported on 02/17/2023 screening mammogram TECHNIQUE: Additional 3-D tomosynthesis images of the right breast were performed and synthetic 2-D i mages were generated. CAD analysis was submitted and interpreted. High resolution lower inner quadran t right breast ultrasound was performed. COMPARISON: 02/17/2023 bilateral screening mammogram FINDINGS: MAMMOGRAPHIC FINDINGS: Approximately 2.3 mm ill-defined density is noted anteriorly in the lower inner quadrant of the right breast ULTRASOUND: In the lower inner quadrant of the right breast there is a 2.1 x 2.7 x 2.8 mm sonolucency with throug h transmission posterior enhancement consistent with small cyst, which corresponds in position and si ze to the mammographic finding. IMPRESSION: 1. Benign 2.8 mm cyst, anterior lower inner quadrant of right breast 2. Routine annual mammographic screening is recommended BI-RADS Category 2: Benign finding(s). Reviewed, dictated and finalized at location A. IMPRESSION: 1. Benign 2.8 mm cyst, anterior lower inner quadrant of right breast 2. Routine annual mammographic screening is recommended BI-RADS Category 2: Benign finding(s).
--- NOTE | ~2023-02-17 | MM_ITS ---
EXAMINATION: MM screening [facility] BI w tawnya HISTORY: Screening mammogram TECHNIQUE: Craniocaudal and mediolateral oblique 3-D tomosynthesis images were obtained and synthetic 2-D images were generated. CAD analysis was submitted and interpreted. COMPARISON: 02/11/2022, 02/11/2021, 02/11/2020 bilateral screening mammogram examinations BREAST PARENCHYMAL COMPOSITION: There are scattered areas of fibroglandular density. FINDINGS: There is a poorly circumscribed 3 mm opacity in the anterior aspect of the lower inner quad rant of the right breast. Diagnostic right mammogram is recommended, with ultrasound if required. Otherwise there is no evidence of suspicious mass, calcification, or architectural distortion to sugg est malignancy in either breast. There has been no other suspicious interval change. IMPRESSION: 1. 3 mm ill-defined density in the anterior lower inner right breast 2. Diagnostic right mammogram is recommended, with ultrasound if required BI-RADS Category 0: Incomplete: Needs additional imaging evaluation. Reviewed, dictated and finalized at location A.
== END 2023-02-17 07:24 | disposition home or self-care (01) ==
LOC: CHSIMG 07:25
PROVIDERS: PCP Family Medicine; Visit Provider Obstetrics & Gynecology
DX: Z12.31 Encounter for screening mammogram for malignant neoplasm of breast (principal); R92.8 Other abnormal and inconclusive findings on diagnostic imaging of breast
CPT/HCPCS: 76642; 77061; 77063; 77065; 77067; G0279

== ENCOUNTER 2024-02-20 08:30 | Outpatient (CLI) | payer OTHER, SELFPAY ==
--- NOTE | ~2024-02-20 | MM_ITS ---
EXAMINATION: MM screening [facility] BI w tawnya HISTORY: Screening mammogram TECHNIQUE: Craniocaudal and mediolateral oblique 3-D tomosynthesis images were obtained and synthetic 2-D images were generated. CAD analysis was submitted and interpreted. COMPARISON: 02/17/2023, 02/15/2022, 02/11/2021, 02/11/2020 BREAST PARENCHYMAL COMPOSITION:Not Dense. There are scattered areas of fibroglandular density. FINDINGS: No suspicious mass, calcification, or architectural distortion are identified in either heavenly ast to suggest malignancy. There has been no suspicious interval change. IMPRESSION: No mammographic evidence of malignancy. Recommend routine screening mammography in one year. BI-RADS Category 1: Negative Reviewed, dictated and finalized at location .
== END 2024-02-20 08:31 | disposition home or self-care (01) ==
LOC: CHSIMG 08:30
PROVIDERS: PCP Family Medicine; Visit Provider Obstetrics & Gynecology
DX: Z12.31 Encounter for screening mammogram for malignant neoplasm of breast (principal)
CPT/HCPCS: 77063; 77067

== ENCOUNTER 2025-02-21 14:27 | Outpatient (CLI) | payer OTHER, SELFPAY ==
--- NOTE | ~2025-02-21 | DEXA_ITS ---
Bone Density Report Name: EVER MA Age: 64 Sex: Female Ethnicity: White Date of : 1960 Indication: postmenopausal; screening for osteoporosis; height loss; Referring Provider: EFREN JACKSON Study: Bone densitometry was performed. Exam Date: February 21, 2025 Accession number: [id number] Bone Density: Region BMD T-score Z-score Classification AP Spine(L1-L4) 1.225 1.6 3.4 Normal Femoral Neck (Left) 0.789 -0.5 1.0 Normal Total Hip (Left) 1.095 1.3 2.5 Normal Femoral Neck (Right) 0.876 0.2 1.8 Normal Total Hip (Right) 1.169 1.9 3.1 Normal Femoral Neck Mean 0.832 -0.2 1.4 Normal Total Hip Mean 1.132 1.6 2.8 Normal World Health Organization criteria for BMD impression classify patients as: Normal (T-score at or above -1.0), Osteopenia (T-score between -1.0 and -2.5), or Osteoporosis (T-score at or below -2.5). 10-year Fracture Risk: FRAX not reported because: All T-scores for Spine Total, Hip Total, Femoral Neck at or above -1.0 Clinical Information Provided by Patient: Patient maximum height was 67 Menopause Age: 42 No regular weight bearing exercise Drinks caffeinated beverages Onset of menses at age 12 Impression: The patient has normal bone mass. Discussion: BONE DENSITY IS ABOVE THE MINIMUM DESIRABLE LEVEL AT ALL SKELETAL SITES TESTED. This patient?s bone mineral density is above the minimum desirable level (T-score -1.0 or better) at all sites measured. The patient should follow a healthful lifestyle (good nutrition with adequate calcium and vitamin D, and appropriate weight-bearing exercise). Follow-Up: Consider repeating this study in 5 years or sooner if there is some new clinical indication. Reported by: YAZMIN on 02/21/2025 2:51:00 PM. Reviewed, dictated and finalized at location A.
--- NOTE | ~2025-02-21 | MM_ITS ---
EXAMINATION: MM screening [facility] BI w tawnya HISTORY: Screening TECHNIQUE: Craniocaudal and mediolateral oblique 3-D tomosynthesis images were obtained and synthetic 2-D images were generated. CAD analysis was submitted and interpreted. COMPARISON: Comparison to multiple prior studies sequentially, with oldest reviewed study dated 02/17/2023. BREAST PARENCHYMAL COMPOSITION: Not dense: There are scattered areas of fibroglandular density. FINDINGS: There is no evidence of suspicious mass, calcification, or architectural distortion to suggest malignancy in either breast. There has been no suspicious interval change. IMPRESSION: 1. No mammographic evidence of malignancy. 2. Recommend routine screening mammography in one year. BI-RADS Category 1: Negative Reviewed, dictated and finalized at location B.
== END 2025-02-21 14:28 | disposition home or self-care (01) ==
PROVIDERS: PCP Family Medicine; Visit Provider Obstetrics & Gynecology
DX: Z12.31 Encounter for screening mammogram for malignant neoplasm of breast (principal); Z13.820 Encounter for screening for osteoporosis
CPT/HCPCS: 77063; 77067; 77080